=== PATIENT | male | born 1975 | race Hispanic/Latino ===

== ENCOUNTER 2017-03-17 14:00 | Outpatient (CLI) | payer OTHER | END 2017-03-17 14:01 | disposition home or self-care (01) | LOC: ULT 14:00 | PROVIDERS: ATTEND Family Medicine | DX: R00.0 Tachycardia, unspecified (principal); I34.0 Nonrheumatic mitral (valve) insufficiency; I07.1 Rheumatic tricuspid insufficiency | CPT/HCPCS: 93306 ==

== ENCOUNTER 2017-03-21 17:50 | Emergency (ER) | payer OTHER ==
[2017-03-21] MEDS ORDERED: Ketorolac Tromethamine 60 MG/2 ML VIAL ONE (18:17)
== END 2017-03-21 18:39 | disposition home or self-care (01) ==
LOC: SCSER 17:50
DX: S76.912A Strain of unspecified muscles, fascia and tendons at thigh level, left thigh, initial encounter (principal); X50.1XXA Overexertion from prolonged static or awkward postures, initial encounter; Y93.02 Activity, running
CPT/HCPCS: 96372; J1885

== ENCOUNTER 2018-04-27 12:26 | Emergency (ER) | payer OTHER ==
[~2018-04-27 12:26] MED LIST: ISOVUE-370 76%-LOCM 1 ML ONE
[2018-04-27 14:01] LABS: #Basophils 0.1 thou/uL (0.0-0.2); #Eosinphils 0.2 thou/uL (0.0-0.7); #Neutrophils 7.5 thou/uL (1.40-6.50); %Basophils 0.6 % (0.0-1.0); %Eosinophils 1.7 % (0.0-10.0); %Lymphocytes 18.6 % (21.0-51.0); %Monocytes 9.1 % (0.0-10.0); %Neutrophils 69.9 % (42.0-75.0); Hemoglobin 16.6 g/dL (14.0-18.0); Mean Corpuscular HGB CONC 34.1 g/dL (32.0-36.0); Mean Corpuscular Hemoglobin 30.9 pg (27.0-31.0); Mean Corpuscular Volume 90.7 fL (78.0-98.0); Mean Platelet Volume 7.5 fL (7.4-10.4); Platelet Count 269 thou/uL (130-400); RBC Distribution Width 12.3 % (11.5-14.5); Red Blood Cell (RBC) Count 5.35 mill/uL (4.70-6.10); White Blood Cell (WBC) Count 10.8 thou/uL (4.8-10.8)
[2018-04-27 14:07] LABS: PTT 28.7 SEC (22.9-36.1); Prothrombin Time 13.6 SEC (12.0-14.7)
[2018-04-27 14:23] LABS: ALT (SGPT) 33 U/L (8-55); AST (SGOT) 27 U/L (5-34); Albumin 4.2 g/dL (3.5-5.0); Alkaline Phosphatase 96 U/L (40-150); Anion Gap 12 mmol/L (10-20); BUN (Urea Nitrogen) 13 mg/dL (8.9-20.6); Bilirubin, Total 0.9 mg/dL (0.2-1.2); Calc. Creatinine Clearance 0 mL/min (70-130); Carbon Dioxide 23 mmol/L (22-29); Chloride 108 mmol/L (98-107); Estimated GFR-MDRD 66; Glucose 106 mg/dL (70-105); Lipase 28 U/L (8-78); Potassium 3.8 mmol/L (3.5-5.1); Protein, Total 7.2 g/dL (6.0-8.3); Sodium 139 mmol/L (136-145)
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
== END 2018-04-27 15:24 | disposition home or self-care (01) ==
LOC: ERS 12:26
DX: R10.30 Lower abdominal pain, unspecified (principal); M54.2 Cervicalgia; M79.601 Pain in right arm; M79.605 Pain in left leg; I25.10 Atherosclerotic heart disease of native coronary artery without angina pectoris; V49.9XXA Car occupant (driver) (passenger) injured in unspecified traffic accident, initial encounter
CPT/HCPCS: 70450; 71260; 72125; 74177; 80053; 83690; 85025; 85610; 85730; 93005; Q9966

== ENCOUNTER 2018-06-21 08:57 | Outpatient (CLI) | payer OTHER ==
--- NOTE | 2018-06-21 09:56 | CT ---
CT abdomen and pelvis with IV contrast. Oral contrast was administered. INDICATIONS: Abdominal pain COMPARISON: 04/27/2018 FINDINGS: Lung bases are clear Liver, spleen, and pancreas appear unremarkable. Stomach and duodenum appear unremarkable. Adrenal glands appear normal. Kidneys appear unremarkable. Collecting structures and urinary bladder appear unremarkable. Small bowel loops are normal caliber and exhibit normal fold pattern. Appendix is identified and appears unremarkable. Colon is unremarkable. Aorta is normal caliber. No evidence of retroperitoneal or mesenteric adenopathy. Pelvic structures appear unremarkable. Subcutaneous tissues, abdominal wall, and muscular structures appear unremarkable. Osseous structures appear unremarkable. IMPRESSION: No acute findings
== END 2018-06-21 08:58 | disposition home or self-care (01) ==
LOC: BICCT 08:57
PROVIDERS: ATTEND Internal Medicine
DX: K21.9 Gastro-esophageal reflux disease without esophagitis (principal); R10.11 Right upper quadrant pain; R10.13 Epigastric pain
CPT/HCPCS: 74177

== ENCOUNTER 2018-08-30 15:50 | Outpatient (CLI) | payer OTHER ==
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
== END 2018-08-30 15:51 | disposition home or self-care (01) ==
LOC: SCSRAD 15:50
PROVIDERS: ATTEND Nurse Practitioner Family
DX: M79.641 Pain in right hand (principal); Z87.81 Personal history of (healed) traumatic fracture; M21.941 Unspecified acquired deformity of hand, right hand; S63.074A Dislocation of distal end of right ulna, initial encounter

== ENCOUNTER 2019-09-26 18:54 | Emergency (ER) | payer OTHER, SELFPAY ==
[2019-09-26] MEDS ORDERED: Ketorolac Tromethamine 30 MG/ML VIAL ONE (19:21)
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
== END 2019-09-26 20:05 | disposition home or self-care (01) ==
LOC: ERS 18:54
DX: M54.5 Low back pain (principal); M54.6 Pain in thoracic spine; I25.10 Atherosclerotic heart disease of native coronary artery without angina pectoris; Z79.899 Other long term (current) drug therapy; V43.52XA Car driver injured in collision with other type car in traffic accident, initial encounter
CPT/HCPCS: 72072; 72100; 96372; J1885

== ENCOUNTER 2020-01-24 05:48 | Emergency (ER) | payer OTHER, SELFPAY ==
--- NOTE | 2020-01-24 07:42 | RAD ---
EXAM: Portable chest PROVIDED CLINICAL HISTORY: Cough COMPARISON: None FINDINGS: Cardiac and mediastinal silhouette is within normal limits. No focal consolidation, pleural fluid or pneumothorax evident. IMPRESSION: No evidence for an acute cardiopulmonary process.
[2020-01-24 11:25] LABS: SARS-CoV-2 MS2 Positive; SARS-CoV-2 N Gene Negative; SARS-CoV-2 S Gene Negative; SARS-CoV-2 by NAA Not Detected (NotDetected); SARS-CoV-2 orf1ab Negative
== END 2020-01-24 06:41 | disposition home or self-care (01) ==
LOC: ERS 05:48
DX: R05 Cough (principal); Z20.828 Contact with and (suspected) exposure to other viral communicable diseases
CPT/HCPCS: 71045; 87635; U0003

== ENCOUNTER 2022-01-17 09:17 | Emergency (ER) | payer OTHER, SELFPAY ==
[2022-01-17] MEDS ORDERED: Bicillin LA 1.2 MILLION UNITS/2 ML SYRINGE ONE (11:50)
[2022-01-17] MEDS ORDERED: Dexamethasone 10 MG/ML VIAL ONE (11:50)
[2022-01-17] MEDS ORDERED: Iopamidol-370 76% 500 ML 1 ML ONE (11:51)
== END 2022-01-17 12:08 | disposition home or self-care (01) ==
LOC: ERS 09:17
DX: J02.0 Streptococcal pharyngitis (principal); I25.10 Atherosclerotic heart disease of native coronary artery without angina pectoris; Z79.899 Other long term (current) drug therapy
CPT/HCPCS: 70491; 87430; 87804; 96372; 96374; J0561; J1100; Q9967

== ENCOUNTER 2024-11-29 16:24 | Outpatient (CLI) | payer OTHER | END 2024-11-29 16:25 | disposition home or self-care (01) | LOC: SCSRAD 16:24 | PROVIDERS: ATTEND Student in an Organized Health Care Education/Training Program | DX: M25.512 Pain in left shoulder (principal); M89.8X1 Other specified disorders of bone, shoulder; M19.012 Primary osteoarthritis, left shoulder; M48.02 Spinal stenosis, cervical region; Z98.890 Other specified postprocedural states; Z98.1 Arthrodesis status | CPT/HCPCS: 72050 ==